=== PATIENT | male | born 1975 | race Caucasian/White ===

== ENCOUNTER → 2016-09-30 | Outpatient (CLI) | payer OTHER ==
[~2016-09-30] MED LIST: ASA; ASPIR-TRIN325 MG PO; ATIVAN0.5 MG PO; BACTRIM DS 8001 TA1 PO; BIAXIN500 MG PO; CATAFLAM50 MG; CIPRO500 MG PO; CYMBALTA30 MG; DOXYCYCLINE100 M3 PO; KEFLEX500 MG PO; Lopressor25 MG PO; METOPROLOL TAR; PERCOCET 325 MG1 TA2 PO; PHENERGAN W/ DE30 ML PO; PREDNICOT10 MG PO; PROAIR HFA0.09 MG/AC INH; PROTONIX40 M1 IV; PROTONIX40 MG PO; RESTORIL15 MG; SEROQUEL100 MG PO; TYLENOL650 M1 PO; VICODIN 5/500 505 MG; ZESTRIL10 MG; ZESTRIL10 MG PO; ZYPREXA10 MG
[2016-09-30 09:55] LABS: BASO % 0.4 % (0.0-1.0); EOS # 0.2 10*3/uL (0.0-0.4); EOS % 2.9 % (1.0-4.0); HEMATOCRIT 42.7 % (42.0-52.0); HEMOGLOBIN 14.6 g/dl (14.0-18.0); LYMPH # 2.9 10*3/uL (1.3-4.4); LYMPH % 35.5 % (27.0-41.0); MEAN CELL VOLUME 90.9 fl (80.0-94.0); MEAN CORPUSCULAR HGB 31.1 pg (27.0-31.0); MEAN CORPUSCULAR HGB CONC 34.2 g/dl (33.0-37.0); MEAN PLATELET VOLUME 8.8 fl (9.6-12.3); MONO # 0.5 10*3/uL (0.1-1.0); MONO % 6.4 % (3.0-9.0); NEUT # 4.5 10*3/uL (2.3-7.9); NEUT % 54.7 % (47.0-73.0); PLATELET COUNT AUTOMATED 315 10*3/uL (130-400); RED CELL DISTRI WIDTH 12.1 % (0-14.5); WHITE BLOOD COUNT 8.3 10*3/uL (4.8-10.8)
[2016-09-30 10:22] LABS: HEMOGLOBIN A1c 5.7 % (4.8-5.6)
[2016-09-30 10:24] LABS: ALBUMIN 4.2 gm/dl (3.1-4.5); ALKALINE PHOSPHATASE 93 U/L (45-117); BILIRUBIN, DIRECT < 0.1 mg/dL (0.0-0.2); BILIRUBIN, TOTAL 0.3 mg/dl (0.2-1.0); BUN 17 mg/dl (7-24); CARBON DIOXIDE 27 mmol/L (21-32); CHLORIDE 105 mmol/L (98-107); CHOLESTEROL 206 mg/dL (<200); EST GLOM FILT AFRICAN AMERICAN > 60 ml/min; FREE T4 0.86 ng/dl (0.76-1.46); GLUCOSE 94 mg/dL (65-99); HDL CHOLESTEROL 43 mg/dl (40-60); LDL CHOLESTEROL 140 mg/dL (9-159); POTASSIUM 4.4 mmol/L (3.5-5.1); SGOT/AST 28 IU/L (3-35); SGPT/ALT 39 U/L (12-78); SODIUM 139 mmol/L (136-145); TOTAL PROTEIN 7.8 gm/dL (6.4-8.2); TRIGLYCERIDES 117 mg/dl (<150); VLDL CHOLESTEROL 23 mg/dL (6-40)
== END | disposition home or self-care (01) ==
LOC: LAB 09:26
PROVIDERS: Internal Medicine
DX: I10 Essential (primary) hypertension (principal); E03.8 Other specified hypothyroidism; E78.4 Other hyperlipidemia; R53.83 Other fatigue; E55.9 Vitamin D deficiency, unspecified; R73.02 Impaired glucose tolerance (oral)

== ENCOUNTER → 2016-12-15 | Outpatient (CLI) | payer OTHER ==
[2016-12-15 08:35] LABS: FREE T4 1.09 ng/dl (0.76-1.46)
[2016-12-15 08:40] LABS: THYROID STIM HORMONE (HS) 2.06 uIU/ml (0.358-4.75)
== END | disposition home or self-care (01) ==
LOC: LAB 07:42
PROVIDERS: Internal Medicine
DX: E03.8 Other specified hypothyroidism (principal)

== ENCOUNTER 2017-05-22 14:21 | Inpatient (IN) | payer OTHER ==
[~2017-05-22] VITALS: Ht 177.8 cm; Wt 127.0 kg
--- NOTE | ~2017-05-22 | PR ---
[place], [place] PROGRESS NOTE NAME: CAMMY CARMEN UNIT #: [id number] ROOM: 529 DOCTOR: HA DEL ANGEL MD BIRTHDATE: [birth year] DOS: 05/24/2017 CARDIOLOGY PROGRESS NOTE SUBJECTIVE: The patient was seen in the cardiology department just prior to his stress test today. He is a 41-year-old man who was admitted for progressive worsening dyspnea and a 60-pound weight gain over the last year. He did have peripheral edema on admission as well as wheezing and episodic dyspnea at rest. Since he has been hospitalized, he has been diuresed and the edema has improved. Since I saw him last evening, he has continued to have episodic dyspnea at rest. I did review his echocardiogram from yesterday afternoon. The study was entirely normal with normal left ventricular size, systolic and diastolic function and normal valve functions. PHYSICAL EXAMINATION: VITAL SIGNS: Today, his pulse is 76 and regular, blood pressure is 102/76. He is afebrile, pulse oximetry is 98%. He weighs 127 kilograms with a body mass index of 40.2. HEENT: Normocephalic, atraumatic. Extraocular muscles are intact. Sclerae are clear. Pupils are round and react to light. The oral mucosa is moist. Tongue is midline. NECK: Supple. He has no jugular distention or hepatojugular reflux. Carotids are full. LUNGS: Respirations are unlabored. His chest is clear to auscultation and percussion. He has no presacral edema. HEART: Has a regular rhythm without murmurs, rubs or gallops. EXTREMITIES: Showed no edema. IMPRESSION: 1. Progressive dyspnea on exertion. 2. Unexplained weight gain. 3. Fluid overload, responding to diuresis. 4. History of hypertension. 5. History of hypothyroidism. PLAN: We will proceed with a pharmacologic stress test today. Further recommendations will depend upon the results of the stress test. I thank the hospitalist physicians for asking our advice regarding his care. [place], [place] PROGRESS NOTE NAME: CAMMY CARMEN UNIT #: [id number] ROOM: 529 DOCTOR: HA DEL ANGEL MD BIRTHDATE: [birth year] HA DEL ANGEL MD CM:PNTRANS [id number] HA DEL ANGEL MD 05/24/17 1135 interface
[2017-05-22 14:22] VITALS: BP 130/77
[2017-05-22] MEDS ORDERED: TRINTELLIX10 MG PO (14:29)
[2017-05-22] MEDS ORDERED: SYNTHROID,LEV175 MCG PO (14:30)
[2017-05-22] MEDS ORDERED: HYDRALAZINE HYD50 MG PO (14:30)
[2017-05-22] MEDS ORDERED: REXULTI4 MG PO (14:31)
[2017-05-22 14:55] VITALS: BP 114/63
[2017-05-22 15:13] LABS: BASO % 0.3 % (0.0-1.0); EOS # 0.2 10*3/uL (0.0-0.4); EOS % 3.7 % (1.0-4.0); HEMATOCRIT 39.7 % (42.0-52.0); HEMOGLOBIN 13.5 g/dl (14.0-18.0); LYMPH # 2.6 10*3/uL (1.3-4.4); LYMPH % 43.1 % (27.0-41.0); MEAN CELL VOLUME 91.7 fl (80.0-94.0); MEAN CORPUSCULAR HGB 31.2 pg (27.0-31.0); MEAN PLATELET VOLUME 8.7 fl (9.6-12.3); MONO # 0.5 10*3/uL (0.1-1.0); MONO % 8.8 % (3.0-9.0); NEUT # 2.6 10*3/uL (2.3-7.9); NEUT % 43.9 % (47.0-73.0); PLATELET COUNT AUTOMATED 272 10*3/uL (130-400); RED BLOOD COUNT 4.33 10*6/uL (4.50-5.90); RED CELL DISTRI WIDTH 11.5 % (0-14.5); WHITE BLOOD COUNT 5.9 10*3/uL (4.8-10.8)
[2017-05-22 15:29] LABS: ALBUMIN 3.6 gm/dl (3.1-4.5); ALKALINE PHOSPHATASE 86 U/L (45-117); BUN 18 mg/dl (7-24); CHLORIDE 101 mmol/L (98-107); CREATININE 1.16 mg/dL (0.70-1.30); LIPASE 127 U/L (73-393); POTASSIUM 3.6 mmol/L (3.5-5.1); SGOT/AST 25 IU/L (3-35); SGPT/ALT 36 U/L (12-78); SODIUM 140 mmol/L (136-145); TOTAL PROTEIN 7.2 gm/dL (6.4-8.2)
[2017-05-22 15:30] LABS: ACT PARTIAL THROMBO TIME 24.5 SECONDS (20.8-31.5)
[2017-05-22 15:36] LABS: TROPONIN I < 0.015 ng/ml (<0.045)
[2017-05-22 16:05] VITALS: BP 112/60
[2017-05-22 16:56] VITALS: BP 102/68
[2017-05-22 18:00] VITALS: BP 123/74
[2017-05-22] MEDS ORDERED: VISTARIL50 MG PO (18:02)
[2017-05-22] MEDS ORDERED: TRAZODONE100 MG PO (18:03)
[2017-05-22] MEDS ORDERED: NORCO 7.5-3251 EACH PO (18:22)
[2017-05-23] VITALS: BP 127/77
[2017-05-23 06:39] LABS: HEMATOCRIT 41.7 % (42.0-52.0); HEMOGLOBIN 14.3 g/dl (14.0-18.0); MEAN CELL VOLUME 91.4 fl (80.0-94.0); MEAN CORPUSCULAR HGB 31.4 pg (27.0-31.0); MEAN CORPUSCULAR HGB CONC 34.3 g/dl (33.0-37.0); MEAN PLATELET VOLUME 9.3 fl (9.6-12.3); PLATELET COUNT AUTOMATED 277 10*3/uL (130-400); RED BLOOD COUNT 4.56 10*6/uL (4.50-5.90); RED CELL DISTRI WIDTH 11.7 % (0-14.5); WHITE BLOOD COUNT 4.9 10*3/uL (4.8-10.8)
[2017-05-23 07:09] LABS: ATYPICAL LYMPHS 1 % (0-0); BASOPHILS 1 % (0-1); PLATELET SUFFICIENCY NORMAL (NORMAL); TOTAL CELLS COUNTED 100 #CELLS
[2017-05-23 07:17] LABS: ALBUMIN 3.6 gm/dl (3.1-4.5); ALKALINE PHOSPHATASE 91 U/L (45-117); BUN 19 mg/dl (7-24); CHLORIDE 103 mmol/L (98-107); CHOLESTEROL 237 mg/dL (<200); HDL CHOLESTEROL 46 mg/dl (40-60); LDL CHOLESTEROL 177 mg/dL (9-159); PHOSPHOROUS 3.1 mg/dL (2.5-4.9); POTASSIUM 4.3 mmol/L (3.5-5.1); SGOT/AST 26 IU/L (3-35); SGPT/ALT 39 U/L (12-78); SODIUM 138 mmol/L (136-145); TOTAL PROTEIN 7.1 gm/dL (6.4-8.2); TRIGLYCERIDES 69 mg/dl (<150); VLDL CHOLESTEROL 14 mg/dL (6-40)
[2017-05-23 07:32] LABS: FREE T4 1.11 ng/dl (0.76-1.46)
[2017-05-23 08:00] VITALS: BP 130/92
[2017-05-23 08:30] LABS: VITAMIN D, 25-HYDROXY 24.9 ng/mL (30-100)
[2017-05-23 12:00] VITALS: BP 147/78
[2017-05-23 16:00] VITALS: BP 131/77
[2017-05-23 20:00] VITALS: BP 109/57
[2017-05-24] VITALS: BP 104/61
[2017-05-24 06:22] LABS: BASO % 0.4 % (0.0-1.0); EOS # 0.2 10*3/uL (0.0-0.4); EOS % 2.5 % (1.0-4.0); HEMATOCRIT 46.4 % (42.0-52.0); HEMOGLOBIN 15.8 g/dl (14.0-18.0); LYMPH # 2.3 10*3/uL (1.3-4.4); LYMPH % 28.8 % (27.0-41.0); MEAN CELL VOLUME 90.4 fl (80.0-94.0); MEAN CORPUSCULAR HGB 30.8 pg (27.0-31.0); MEAN CORPUSCULAR HGB CONC 34.1 g/dl (33.0-37.0); MEAN PLATELET VOLUME 8.9 fl (9.6-12.3); MONO # 0.8 10*3/uL (0.1-1.0); MONO % 9.6 % (3.0-9.0); NEUT # 4.7 10*3/uL (2.3-7.9); NEUT % 58.4 % (47.0-73.0); PLATELET COUNT AUTOMATED 323 10*3/uL (130-400); RED BLOOD COUNT 5.13 10*6/uL (4.50-5.90); RED CELL DISTRI WIDTH 11.5 % (0-14.5)
[2017-05-24 06:47] LABS: BUN 21 mg/dl (7-24); CHLORIDE 102 mmol/L (98-107); CREATININE 1.01 mg/dL (0.70-1.30); PHOSPHOROUS 3.2 mg/dL (2.5-4.9); SODIUM 136 mmol/L (136-145)
[2017-05-24 08:00] VITALS: BP 102/76
[2017-05-24 12:00] VITALS: BP 118/74
[2017-05-24] MEDS ORDERED: PROVENTIL HFA6.7 GM INH (13:46)
[2017-05-24] MEDS ORDERED: VITAMIN D-32000 UNIT PO (13:46)
== END 2017-05-24 16:00 | disposition home or self-care (01) | DRG 204 ==
LOC: ED 14:21 → 5E 16:43 → EDHOLD 16:43 → 5E 17:13
PROVIDERS: Emergency Medicine; Internal Medicine; Internal Medicine Nephrology
PROC: 3E073KZ Introduction of Other Diagnostic Substance into Coronary Artery, Percutaneous Approach (ICD-10-PCS; principal; 2017-05-24)
PROC: 4A02XM4 Measurement of Cardiac Total Activity, External Approach (ICD-10-PCS; principal; 2017-05-24)
DX: R06.09 Other forms of dyspnea (principal); E66.01 Morbid (severe) obesity due to excess calories; Z68.41 Body mass index [BMI] 40.0-44.9, adult; E83.41 Hypermagnesemia; D64.9 Anemia, unspecified; F32.9 Major depressive disorder, single episode, unspecified; E03.9 Hypothyroidism, unspecified; I10 Essential (primary) hypertension; R55 Syncope and collapse; R42 Dizziness and giddiness; E78.5 Hyperlipidemia, unspecified

== ENCOUNTER 2017-09-16 21:30 | Emergency (ER) | payer OTHER ==
[~2017-09-16] VITALS: Ht 177.8 cm; Wt 127.0 kg
[~2017-09-16 21:30] MED LIST changes: +HYDRALAZINE HYD50 MG PO; +NORCO 7.5-3251 EACH PO; +PROVENTIL HFA6.7 GM INH; +REXULTI4 MG PO; +SYNTHROID,LEV175 MCG PO; +TRAZODONE100 MG PO; +TRINTELLIX10 MG PO; +VISTARIL50 MG PO; +VITAMIN D-32000 UNIT PO
[2017-09-16] MEDS ORDERED: CYCLOBENZAPRINE10 MG PO (22:52)
[2017-09-16] MEDS ORDERED: NAPROSYN500 MG PO (22:52)
[2017-09-16] MEDS ORDERED: MEDROL DOSEPAK4 MG PO (22:52)
== END 2017-09-16 22:52 | disposition home or self-care (01) ==
LOC: ED 21:30
DX: S39.012A Strain of muscle, fascia and tendon of lower back, initial encounter (principal); Z79.899 Other long term (current) drug therapy; Z87.891 Personal history of nicotine dependence; X58.XXXA Exposure to other specified factors, initial encounter; Y93.89 Activity, other specified; Y92.89 Other specified places as the place of occurrence of the external cause; Y99.8 Other external cause status

== ENCOUNTER 2018-04-07 12:33 | Emergency (ER) | payer SELFPAY ==
[~2018-04-07] VITALS: Ht 177.8 cm; Wt 136.1 kg
--- NOTE | ~2018-04-07 | EKG ---
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
[~2018-04-07 12:33] MED LIST changes: +CYCLOBENZAPRINE10 MG PO; +MEDROL DOSEPAK4 MG PO; +NAPROSYN500 MG PO
[2018-04-07 13:02] LABS: BASO % 0.3 % (0.0-1.0); EOS # 0.1 10*3/uL (0.0-0.4); EOS % 1.5 % (1.0-4.0); HEMATOCRIT 42.2 % (42.0-52.0); HEMOGLOBIN 14.3 g/dl (14.0-18.0); LYMPH # 2.3 10*3/uL (1.3-4.4); LYMPH % 28.8 % (27.0-41.0); MEAN CELL VOLUME 92.7 fl (80.0-94.0); MEAN CORPUSCULAR HGB 31.4 pg (27.0-31.0); MEAN CORPUSCULAR HGB CONC 33.9 g/dl (33.0-37.0); MEAN PLATELET VOLUME 8.6 fl (9.6-12.3); MONO # 0.4 10*3/uL (0.1-1.0); MONO % 5.1 % (3.0-9.0); PLATELET COUNT AUTOMATED 344 10*3/uL (130-400); RED BLOOD COUNT 4.55 10*6/uL (4.50-5.90); RED CELL DISTRI WIDTH 12.4 % (0-14.5); WHITE BLOOD COUNT 7.9 10*3/uL (4.8-10.8)
[2018-04-07 13:16] LABS: ALBUMIN 3.6 gm/dl (3.1-4.5); ALKALINE PHOSPHATASE 90 U/L (45-117); BUN 13 mg/dl (7-24); CHLORIDE 103 mmol/L (98-107); CREATININE 1.12 mg/dL (0.70-1.30); POTASSIUM 4.1 mmol/L (3.5-5.1); SGOT/AST 19 IU/L (3-35); SGPT/ALT 38 U/L (12-78); SODIUM 137 mmol/L (136-145); TOTAL PROTEIN 7.6 gm/dL (6.4-8.2)
[2018-04-07 13:18] LABS: TROPONIN I < 0.015 ng/ml (<0.045)
== END 2018-04-07 13:34 | disposition home or self-care (01) ==
LOC: ED 12:33
PROVIDERS: Nurse Practitioner Family
DX: M62.838 Other muscle spasm (principal); I10 Essential (primary) hypertension; E78.5 Hyperlipidemia, unspecified; E03.9 Hypothyroidism, unspecified; E66.9 Obesity, unspecified; Z79.899 Other long term (current) drug therapy; Z87.891 Personal history of nicotine dependence

== ENCOUNTER 2018-05-15 02:16 | Emergency (ER) | payer SELFPAY ==
[~2018-05-15] VITALS: Ht 177.8 cm; Wt 136.1 kg
[2018-05-15] MEDS ORDERED: AVPAK AZITHROM250 M1 PO (03:08)
[2018-05-15] MEDS ORDERED: IBU800 MG PO (03:08)
[2018-05-15] MEDS ORDERED: CYCLOBENZAPRINE10 MG PO (03:08)
== END 2018-05-15 03:41 | disposition home or self-care (01) ==
LOC: ED 02:16
DX: J18.9 Pneumonia, unspecified organism (principal); F12.90 Cannabis use, unspecified, uncomplicated; E78.5 Hyperlipidemia, unspecified; I10 Essential (primary) hypertension; E03.9 Hypothyroidism, unspecified; Z79.899 Other long term (current) drug therapy; Z79.82 Long term (current) use of aspirin; Z87.891 Personal history of nicotine dependence; Z90.89 Acquired absence of other organs; Z98.890 Other specified postprocedural states

== ENCOUNTER → 2018-12-13 | Outpatient (CLI) | payer OTHER ==
[~2018-12-13] MED LIST changes: +AVPAK AZITHROM250 M1 PO; +IBU800 MG PO
[2018-12-13 06:39] LABS: BASO % 0.3 % (0.0-1.0); EOS # 0.2 10*3/uL (0.0-0.4); EOS % 2.3 % (1.0-4.0); HEMATOCRIT 44.7 % (42.0-52.0); HEMOGLOBIN 14.7 g/dl (14.0-18.0); LYMPH # 2.2 10*3/uL (1.3-4.4); LYMPH % 31.9 % (27.0-41.0); MEAN CORPUSCULAR HGB 30.2 pg (27.0-31.0); MEAN CORPUSCULAR HGB CONC 32.9 g/dl (33.0-37.0); MEAN PLATELET VOLUME 9.2 fl (9.6-12.3); MONO # 0.6 10*3/uL (0.1-1.0); MONO % 8.9 % (3.0-9.0); NEUT # 3.9 10*3/uL (2.3-7.9); NEUT % 56.5 % (47.0-73.0); PLATELET COUNT AUTOMATED 380 10*3/uL (130-400); RED BLOOD COUNT 4.86 10*6/uL (4.50-5.90); RED CELL DISTRI WIDTH 13.1 % (0-14.5)
[2018-12-13 07:12] LABS: ALBUMIN 3.8 gm/dl (3.1-4.5); ALKALINE PHOSPHATASE 90 U/L (45-117); BUN 14 mg/dl (7-24); CHLORIDE 105 mmol/L (98-107); CHOLESTEROL 217 mg/dL (<200); HDL CHOLESTEROL 37 mg/dl (40-60); LDL CHOLESTEROL 156 mg/dL (9-159); POTASSIUM 3.9 mmol/L (3.5-5.1); SGOT/AST 19 IU/L (3-35); SGPT/ALT 34 U/L (12-78); SODIUM 135 mmol/L (136-145); TOTAL PROTEIN 7.6 gm/dL (6.4-8.2); TRIGLYCERIDES 119 mg/dl (<150); VLDL CHOLESTEROL 24 mg/dL (6-40)
== END | disposition home or self-care (01) ==
LOC: LAB 05:56
PROVIDERS: Nurse Practitioner Family
DX: E03.9 Hypothyroidism, unspecified (principal); E78.5 Hyperlipidemia, unspecified; I10 Essential (primary) hypertension

== ENCOUNTER 2019-01-19 17:48 | Inpatient (IN) | payer OTHER ==
[~2019-01-19] VITALS: Ht 177.8 cm; Wt 123.5 kg
--- NOTE | ~2019-01-19 | EKG ---
[place], [place] ELECTROCARDIOGRAM REPORT NAME: CAMMY CARMEN UNIT #: [id number] ROOM: 409 DOCTOR: JOURDAN DRAFT REPORT BIRTHDATE: [birth year] [facility] Test Date: 2019-01-19 Test Time: 17:57:23 Pat Name: CAMMY CARMEN Department: Room: 409 Gender: M Straightener And Aligner: Roselyn Betancourt : 1975 Requested By: EDE DAO Order Number: [id number] Reading MD: Marichuy Campbell MD Measurements Intervals [place] Rate: 74 P: 1 ND: 184 QRS: 23 QRSD: 96 T: 33 QT: 399 QTc: 443 Interpretive Statements Sinus rhythm Compared to ECG 04/07/2018 12:49:53 No significant changes Electronically Signed On 01-21-2019 17:21:30 PDT by Marichuy Campbell MD CM:EKGRPT:ELECTROCARDIOGRAM REPORT [id number] EDE SOLIMAN DRAFT REPORT EDE DAO M.D.
--- NOTE | ~2019-01-19 | EKG ---
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
--- NOTE | ~2019-01-19 | ST ---
[place], [place] EXERCISE STRESS TEST REPORT NAME: CAMMY CARMEN UNIT #: [id number] ROOM: 409 DOCTOR: HERMILA BOYLE MD BIRTHDATE: [birth year] DOS: 01/20/2019 EXERCISE STRESS ECHOCARDIOGRAPHY AGE: 43. SEX: Male. REASON FOR TESTING: Recurrent syncope. PROCEDURE: The patient exercised for 8 minutes and 0 seconds on full Higinio protocol stress test and stopped for dyspnea. The patient achieved maximum heart rate of 149, which represented 84% of maximum predicted heart rate at a workload of 10 mets. There were no EKG changes on the exercise EKG. The patient experienced no chest pain. Lindsay treadmill score was 8 consistent with a low risk of cardiovascular events. There was an appropriate heart rate and blood pressure response to exercise and recovery. Below average functional capacity. Please see the separate imaging report for further details of the stress test results. Hermila Boyle MD CM:STRESS:EXERCISE STRESS TEST REPORT [id number] HERMILA BOYLE MD
[~2019-01-19 17:48] MED LIST changes: -ZESTRIL10 MG
[2019-01-19 18:01] VITALS: BP 116/64
[2019-01-19 18:35] LABS: BASO % 0.3 % (0.0-1.0); EOS # 0.1 10*3/uL (0.0-0.4); HEMATOCRIT 41.6 % (42.0-52.0); HEMOGLOBIN 13.4 g/dl (14.0-18.0); LYMPH # 1.6 10*3/uL (1.3-4.4); LYMPH % 16.1 % (27.0-41.0); MEAN CELL VOLUME 93.1 fl (80.0-94.0); MEAN CORPUSCULAR HGB CONC 32.2 g/dl (33.0-37.0); MEAN PLATELET VOLUME 8.9 fl (9.6-12.3); MONO # 0.8 10*3/uL (0.1-1.0); MONO % 7.7 % (3.0-9.0); NEUT # 7.3 10*3/uL (2.3-7.9); NEUT % 74.6 % (47.0-73.0); PLATELET COUNT AUTOMATED 345 10*3/uL (130-400); RED BLOOD COUNT 4.47 10*6/uL (4.50-5.90); RED CELL DISTRI WIDTH 13.3 % (0-14.5); WHITE BLOOD COUNT 9.8 10*3/uL (4.8-10.8)
[2019-01-19 18:50] LABS: ALBUMIN 3.5 gm/dl (3.1-4.5); ALKALINE PHOSPHATASE 81 U/L (45-117); BUN 11 mg/dl (7-24); CHLORIDE 106 mmol/L (98-107); CREATININE 1.04 mg/dL (0.70-1.30); POTASSIUM 3.9 mmol/L (3.5-5.1); SGOT/AST 19 IU/L (3-35); SGPT/ALT 31 U/L (12-78); SODIUM 138 mmol/L (136-145); TOTAL PROTEIN 7.2 gm/dL (6.4-8.2)
[2019-01-19 18:52] LABS: TROPONIN I < 0.015 ng/ml (<0.045)
[2019-01-19 19:20] VITALS: BP 113/58
--- NOTE | 2019-01-19 19:56 | NUR ---
PATIENT STATES HE IS FEELING BETTER AT THIS TIME. DENIES DIZZINESS WHILE LAYING IN BED. AT BEDSIDE TALKING WITH PATIENT. AOX4. SKIN W.P.D. RESP EASY AND NONLABORED. RN WILL CONT TO MONITOR. CALL LIGHT WITHIN REACH
[2019-01-19 20:00] LABS: BILIRUBIN NEGATIVE (NEGATIVE); BLOOD NEGATIVE (NEGATIVE); CLARITY CLEAR (CLEAR); COLOR YELLOW (YELLOW); GLUCOSE NEGATIVE (NEGATIVE); KETONE NEGATIVE (NEGATIVE); LEUKO ESTERASE NEGATIVE (NEGATIVE); NITRITE NEGATIVE (NEGATIVE); SPECIFIC GRAVITY 1.015 (1.005-1.030); UROBILINOGEN 0.2 E.U./dl (0.2-1.0)
[2019-01-19 20:17] LABS: EPITHELIAL CELLS 0-2; MUCOUS TRACE; WBC 0-2 wbc/hpf (0-5)
[2019-01-19 20:18] LABS: BACTERIA TRACE
--- NOTE | 2019-01-19 21:02 | NUR ---
PATIENT CURRENTLY EATING PIZZA AT THIS TIME.
[2019-01-19 22:00] VITALS: BP 127/72
--- NOTE | 2019-01-19 22:00 | NUR ---
A 43, admitted to 4E, under the services of OZZY Ramos DO with a diagnosis of SYNCOPE & COLLAPSE. Chief complaint is DIZZINESS/SYNCOPE. Patient arrived via stretcher from ER. Monitor applied. Initial assessment completed. Vital signs taken and recorded. OZZY RAMOS DO notified of admission to the unit. Orders received. See assessment for past medical history, medications and allergies. Patient and/or family oriented to unit. [facility] visitation policy reviewed. Clothing/patient valuable form completed. CORNELIUS CHAUDHARY
[2019-01-19] MEDS ORDERED: LEVOTHYROXINE137 MCG PO (22:07)
[2019-01-19] MEDS ORDERED: Lopressor25 MG PO (22:08)
[2019-01-19] MEDS ORDERED: SILDENAFIL CITR50 MG PO (22:12)
[2019-01-19] MEDS ORDERED: PROVENTIL HFA6.7 GM INH (22:14)
[2019-01-19] MEDS ORDERED: TERBINAFINE250 MG PO (22:15)
--- NOTE | 2019-01-19 22:19 | NUR ---
MED REC UP TO DATE PER PT RECALL.
--- NOTE | 2019-01-19 22:30 | NUR ---
AWARE OF MED REC UP TO DATE & PT'S REQUEST FOR TRAZODONE TONIGHT.
--- NOTE | 2019-01-19 22:38 | NUR ---
'S ANSWERING SERVICE CALLED REGARDING CONSULT. CALL BACK REQUESTED FOR TOMORROW MORNING. PT INFORMATION LEFT WITH ACTUARY CLERK.
--- NOTE | 2019-01-19 23:03 | NUR ---
PT ASLEEP IN BED AT THIS TIME. SCHEDULED TRAZODONE NOT GIVEN FOR THIS REASON.
[2019-01-20] VITALS: BP 127/72
[2019-01-20 08:00] VITALS: BP 122/84
--- NOTE | 2019-01-20 09:00 | NUR ---
[employer] in to talk to patient. Patient states lives at home with family. There are few steps in the home. Physician: Pharmacy: [facility] Home health services: none Patient's level of ADLs: INDEPENDENT Patient has working utilities: all working DME: none Follow-up physician's appointment after d/c: will be made by hospitalist nurse director upon discharge Does patient want to access PORTAL?: no Discharge plan discussed with patient, he states he lives at home with family, is independent in adls and ambualtion, he states he will return home when medically stable and denies any home needs. DAMARI STONE
--- NOTE | 2019-01-20 09:00 | NUR ---
TAKEN DOWN TO CARDIAC REHAB FOR STRESS TEST
--- NOTE | 2019-01-20 09:30 | NUR ---
INFORMED CONSENT OBTAINED FOR EXERCISE STRESS ECHO WITH DR. BOYLE. RESTING EKG NSR WITH A SUPINE HR OF 66 WITH BP OF 124/76 AND HR OF 94 WITH BP OF 120/80 IN STANDING POSITION. PT COMPLETED 8:00 OF A TITUS PROTOCOL WITH COMPLETION OF 2:00 OF STAGE III AT 3.4 MPH AND 14% GRADE. REACHED A PEAK HR OF 149 WHICH IS 84% OF PREDICTED MAX WITH A PEAK BP OF 174/84. TEST TERMINATED BECAUSE OF FATIGUE AND SOB. HAD NO CHEST PAIN OR ANY EKG CHANGES. DENIED ANY DIZZINESS WITH TESTING. SEE STRESS ECHO REPORT FOR FULL REPORT. OPTISON USED DURING TESTING. NEGATIVE STRESS ECHO. HAS AN AVERAGE EXERCISE TOLERANCE. LAST RECOVERY HR OF 104 WITH BP OF 128/82. RETURNED VIA WHEELCHAIR TO NURSING UNIT IN STABLE CONDITION.
[2019-01-20 12:00] VITALS: BP 124/78
[2019-01-20 16:00] VITALS: BP 151/91
--- NOTE | 2019-01-20 19:46 | NUR ---
CINTIA LOZANO PROVIDED TO PATIENT PER ORDER. PT STATES HE WILL APPLY HIMSELF.
[2019-01-20 20:00] VITALS: BP 136/71
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
[2019-01-21] VITALS: BP 122/61
--- NOTE | 2019-01-21 05:27 | NUR ---
NO NEEDS VOICED AT THIS TIME. WILL MONITOR. CALL LIGHT IN REACH. PT WEARING CINTIA HOSE.
[2019-01-21 05:52] LABS: BUN 13 mg/dl (7-24); CHLORIDE 104 mmol/L (98-107); CREATININE 1.04 mg/dL (0.70-1.30); SODIUM 139 mmol/L (136-145)
[2019-01-21 06:07] LABS: BASO % 0.3 % (0.0-1.0); EOS # 0.2 10*3/uL (0.0-0.4); EOS % 2.4 % (1.0-4.0); HEMATOCRIT 44.1 % (42.0-52.0); LYMPH # 2.2 10*3/uL (1.3-4.4); MEAN CELL VOLUME 93.8 fl (80.0-94.0); MEAN CORPUSCULAR HGB 29.8 pg (27.0-31.0); MEAN CORPUSCULAR HGB CONC 31.7 g/dl (33.0-37.0); MEAN PLATELET VOLUME 9.5 fl (9.6-12.3); MONO # 0.7 10*3/uL (0.1-1.0); MONO % 9.6 % (3.0-9.0); NEUT % 56.6 % (47.0-73.0); PLATELET COUNT AUTOMATED 356 10*3/uL (130-400); RED CELL DISTRI WIDTH 13.2 % (0-14.5); WHITE BLOOD COUNT 7.1 10*3/uL (4.8-10.8)
[2019-01-21 08:00] VITALS: BP 124/76
--- NOTE | 2019-01-21 08:10 | NUR ---
PT RESTING IN BED. NO DISTRESS NOTED. WILL MONITOR
--- NOTE | 2019-01-21 09:00 | NUR ---
case management visits with patient, present, stated patient is being discharged to home today and denies any home needs
--- NOTE | 2019-01-21 09:06 | NUR ---
SPOKE WITH DR BOYLE REGARDING 30 DAY MONITOR AND TILT TABLE SAYS THEY WILL TAKE CARE OF IT DR PÉREZ NOTIFIED PT WENT OUTSIDE, AFTER BEING TOLD THAT HE CANT DR PÉREZ NOTIFIED
[2019-01-21] MEDS ORDERED: ATORVASTATIN CA20 M1 PO (10:07)
--- NOTE | 2019-01-21 10:32 | NUR ---
Discharge instructions reviewed with patient/family. Patient receptive and verbalizes understanding. Follow-up care arranged. Written instructions given to patient/family. KAREY MCCURDY
== END 2019-01-21 10:38 | disposition home or self-care (01) | DRG 312 ==
LOC: ED 17:48 → EDHOLD 21:17 → 4E 21:17
PROVIDERS: Emergency Medicine; Internal Medicine; Student in an Organized Health Care Education/Training Program; ADMIT Internal Medicine
PROC: 4A02XM4 Measurement of Cardiac Total Activity, External Approach (ICD-10-PCS; principal; 2019-01-20)
DX: I95.1 Orthostatic hypotension (principal); E44.0 Moderate protein-calorie malnutrition; D64.9 Anemia, unspecified; E66.9 Obesity, unspecified; F32.9 Major depressive disorder, single episode, unspecified; I10 Essential (primary) hypertension; E03.9 Hypothyroidism, unspecified; E78.5 Hyperlipidemia, unspecified; N52.9 Male erectile dysfunction, unspecified; R73.9 Hyperglycemia, unspecified; F17.210 Nicotine dependence, cigarettes, uncomplicated; Z71.6 Tobacco abuse counseling; Z87.01 Personal history of pneumonia (recurrent); Z82.49 Family history of ischemic heart disease and other diseases of the circulatory system; Z83.3 Family history of diabetes mellitus; Z84.89 Family history of other specified conditions; Z79.899 Other long term (current) drug therapy; Z68.39 Body mass index [BMI] 39.0-39.9, adult

== ENCOUNTER 2019-11-12 13:26 | Emergency (ER) | payer OTHER ==
[~2019-11-12] VITALS: Ht 175.2 cm; Wt 108.0 kg
[~2019-11-12 13:26] MED LIST changes: +ATORVASTATIN CA20 M1 PO; +LEVOTHYROXINE137 MCG PO; +SILDENAFIL CITR50 MG PO; +TERBINAFINE250 MG PO
[2019-11-12 14:17] LABS: BASO % 0.1 % (0.0-1.0); EOS # 0.2 10*3/uL (0.0-0.4); EOS % 1.9 % (1.0-4.0); HEMATOCRIT 46.8 % (42.0-52.0); LYMPH # 2.3 10*3/uL (1.3-4.4); MEAN CELL VOLUME 93.8 fl (80.0-94.0); MEAN CORPUSCULAR HGB 31.5 pg (27.0-31.0); MEAN CORPUSCULAR HGB CONC 33.5 g/dl (33.0-37.0); MEAN PLATELET VOLUME 8.7 fl (9.6-12.3); MONO # 0.6 10*3/uL (0.1-1.0); MONO % 6.8 % (3.0-9.0); NEUT # 5.5 10*3/uL (2.3-7.9); NEUT % 64.1 % (47.0-73.0); PLATELET COUNT AUTOMATED 332 10*3/uL (130-400); RED BLOOD COUNT 4.99 10*6/uL (4.50-5.90); RED CELL DISTRI WIDTH 13.2 % (0-14.5); WHITE BLOOD COUNT 8.5 10*3/uL (4.8-10.8)
[2019-11-12 14:30] LABS: ALBUMIN 3.7 gm/dl (3.1-4.5); ALKALINE PHOSPHATASE 86 U/L (45-117); BUN 15 mg/dl (7-24); CHLORIDE 108 mmol/L (98-107); CREATININE 1.03 mg/dL (0.70-1.30); POTASSIUM 4.4 mmol/L (3.5-5.1); SGOT/AST 13 IU/L (3-35); SGPT/ALT 33 U/L (12-78); SODIUM 139 mmol/L (136-145); TOTAL PROTEIN 7.5 gm/dL (6.4-8.2)
[2019-11-12 14:31] LABS: ACT PARTIAL THROMBO TIME 26.8 SECONDS (20.0-32.1); INTERNATIONAL NORM RATIO 0.9 (2.0-3.5)
== END 2019-11-12 14:42 | disposition home or self-care (01) ==
LOC: ED 13:26
PROVIDERS: Nurse Practitioner Family
DX: R60.0 Localized edema (principal); F17.200 Nicotine dependence, unspecified, uncomplicated; Z79.899 Other long term (current) drug therapy; Z79.82 Long term (current) use of aspirin

== ENCOUNTER → 2020-01-25 | Outpatient (CLI) | payer OTHER | END | disposition home or self-care (01) | LOC: LAB 14:26 | DX: Z51.81 Encounter for therapeutic drug level monitoring (principal); Z79.899 Other long term (current) drug therapy ==

== ENCOUNTER → 2020-03-21 | Outpatient (CLI) | payer OTHER ==
[2020-03-21 07:49] LABS: BASO % 0.2 % (0.0-1.0); EOS # 0.1 10*3/uL (0.0-0.4); HEMATOCRIT 47.6 % (42.0-52.0); LYMPH # 1.7 10*3/uL (1.3-4.4); LYMPH % 28.5 % (27.0-41.0); MEAN CELL VOLUME 96.4 fl (80.0-94.0); MEAN CORPUSCULAR HGB CONC 33.2 g/dl (33.0-37.0); MEAN PLATELET VOLUME 9.3 fl (9.6-12.3); MONO # 0.7 10*3/uL (0.1-1.0); MONO % 11.8 % (3.0-9.0); NEUT # 3.6 10*3/uL (2.3-7.9); NEUT % 58.3 % (47.0-73.0); PLATELET COUNT AUTOMATED 295 10*3/uL (130-400); RED BLOOD COUNT 4.94 10*6/uL (4.50-5.90); RED CELL DISTRI WIDTH 12.5 % (0-14.5); WHITE BLOOD COUNT 6.1 10*3/uL (4.8-10.8)
[2020-03-21 08:18] LABS: ALKALINE PHOSPHATASE 56 U/L (45-117); BUN 19 mg/dl (7-24); CHLORIDE 106 mmol/L (98-107); CHOLESTEROL 245 mg/dL (<200); CREATININE 1.11 mg/dL (0.70-1.30); HDL CHOLESTEROL 38 mg/dl (40-60); LDL CHOLESTEROL 189 mg/dL (9-159); POTASSIUM 5.3 mmol/L (3.5-5.1); SGOT/AST 33 IU/L (3-35); SGPT/ALT 56 U/L (12-78); SODIUM 140 mmol/L (136-145); TOTAL PROTEIN 7.7 gm/dL (6.4-8.2); TRIGLYCERIDES 92 mg/dl (<150); VLDL CHOLESTEROL 18 mg/dL (6-40)
[2020-03-21 08:27] LABS: VALPROIC ACID (DEPAKENE) 44.6 ug/ml (50-100)
== END | disposition home or self-care (01) ==
LOC: LAB 06:49
PROVIDERS: ATTEND Nurse Practitioner
DX: Z51.81 Encounter for therapeutic drug level monitoring (principal); Z79.899 Other long term (current) drug therapy

== ENCOUNTER → 2020-09-17 | Outpatient (CLI) | payer OTHER ==
[2020-09-17 08:44] LABS: BASO # 0.1 10*3/uL (0.0-0.1); BASO % 0.5 % (0.0-1.0); EOS # 0.3 10*3/uL (0.0-0.4); HEMATOCRIT 52.1 % (42.0-52.0); LYMPH # 2.1 10*3/uL (1.3-4.4); LYMPH % 23.1 % (27.0-41.0); MEAN CELL VOLUME 96.8 fl (80.0-94.0); MEAN PLATELET VOLUME 8.6 fl (9.6-12.3); MONO # 0.7 10*3/uL (0.1-1.0); MONO % 7.6 % (3.0-9.0); NEUT % 65.7 % (47.0-73.0); PLATELET COUNT AUTOMATED 360 10*3/uL (130-400); RED BLOOD COUNT 5.38 10*6/uL (4.50-5.90); RED CELL DISTRI WIDTH 12.8 % (0-14.5); WHITE BLOOD COUNT 9.2 10*3/uL (4.8-10.8)
[2020-09-17 09:16] LABS: ALBUMIN 3.9 gm/dl (3.1-4.5); ALKALINE PHOSPHATASE 107 U/L (45-117); BUN 13 mg/dl (7-24); CHLORIDE 108 mmol/L (98-107); CHOLESTEROL 258 mg/dL (<200); CREATININE 1.12 mg/dL (0.70-1.30); LDL CHOLESTEROL 191 mg/dL (9-159); POTASSIUM 4.9 mmol/L (3.5-5.1); SGOT/AST 19 IU/L (3-35); SGPT/ALT 28 U/L (12-78); SODIUM 140 mmol/L (136-145); TOTAL PROTEIN 8.1 gm/dL (6.4-8.2); TRIGLYCERIDES 107 mg/dl (<150)
== END | disposition home or self-care (01) ==
LOC: LAB 08:22
PROVIDERS: ATTEND Nurse Practitioner
DX: Z51.81 Encounter for therapeutic drug level monitoring (principal); Z79.899 Other long term (current) drug therapy

== ENCOUNTER → 2020-11-21 | Outpatient (CLI) | payer OTHER | END | disposition home or self-care (01) | LOC: LAB 08:30 | PROVIDERS: ATTEND Nurse Practitioner | DX: Z51.81 Encounter for therapeutic drug level monitoring (principal); Z79.899 Other long term (current) drug therapy ==

== ENCOUNTER → 2021-01-18 | Outpatient (CLI) | payer SELFPAY | END | disposition home or self-care (01) | LOC: LAB 09:08 | PROVIDERS: ATTEND Nurse Practitioner | DX: Z51.81 Encounter for therapeutic drug level monitoring (principal); Z79.899 Other long term (current) drug therapy ==

== ENCOUNTER → 2021-07-05 | Outpatient (CLI) | payer BC ==
[2021-07-05 08:52] LABS: FREE T4 0.62 ng/dl (0.76-1.46)
[2021-07-05 08:57] LABS: THYROID STIM HORMONE (HS) 21.5 uIU/ml (0.358-4.75)
== END | disposition home or self-care (01) ==
LOC: LAB 08:10
PROVIDERS: ATTEND Nurse Practitioner
DX: Z51.81 Encounter for therapeutic drug level monitoring (principal); Z79.899 Other long term (current) drug therapy

== ENCOUNTER 2023-06-01 13:28 | Emergency (ER) | payer MEDICAID ==
[~2023-06-01] VITALS: Ht 177.8 cm; Wt 104.3 kg
[2023-06-01] MEDS ORDERED: Acetaminophen/Oxycodone 5 MG/325 MG TABLET PO ONE (13:35)
[2023-06-01] MEDS ORDERED: PERCOCET 5-3251 EACH PO ×3 (14:05→17:20)
== END 2023-06-01 14:14 | disposition home or self-care (01) ==
LOC: ED 13:28
DX: S62.326A Displaced fracture of shaft of fifth metacarpal bone, right hand, initial encounter for closed fracture (principal); F41.9 Anxiety disorder, unspecified; F31.9 Bipolar disorder, unspecified; I10 Essential (primary) hypertension; F17.200 Nicotine dependence, unspecified, uncomplicated; F12.90 Cannabis use, unspecified, uncomplicated; Z90.49 Acquired absence of other specified parts of digestive tract; Z98.890 Other specified postprocedural states; W23.0XXA Caught, crushed, jammed, or pinched between moving objects, initial encounter; Y93.89 Activity, other specified; Y92.89 Other specified places as the place of occurrence of the external cause; Y99.8 Other external cause status

== ENCOUNTER 2023-06-12 18:11 | Emergency (ER) | payer OTHER, MEDICAID ==
[~2023-06-12] VITALS: Wt 113.4 kg
[~2023-06-12 18:11] MED LIST changes: +PERCOCET 5-3251 EACH PO
[2023-06-12] MEDS ORDERED: SODIUM CHLORIDE 0.9% 1,000 ML IV ONE (18:20)
[2023-06-12] MEDS ORDERED: Thiamine 200 MG/2 ML VIAL IV ONE (18:20)
[2023-06-12] MEDS ORDERED: IOHEXOL 300 MG/ML 100 ML VIAL IV ONE (18:25)
[2023-06-12 18:29] LABS: BASO % 0.4 % (0.0-1.0); EOS # 0.2 10*3/uL (0.0-0.4); EOS % 1.8 % (1.0-4.0); HEMATOCRIT 45.6 % (42.0-52.0); LYMPH # 3.8 10*3/uL (1.3-4.4); LYMPH % 46.2 % (27.0-41.0); MEAN CELL VOLUME 96.8 fl (80.0-94.0); MEAN CORPUSCULAR HGB 32.1 pg (27.0-31.0); MEAN CORPUSCULAR HGB CONC 33.1 g/dl (33.0-37.0); MEAN PLATELET VOLUME 8.4 fl (9.6-12.3); MONO # 0.7 10*3/uL (0.1-1.0); MONO % 8.6 % (3.0-9.0); NEUT # 3.4 10*3/uL (2.3-7.9); NEUT % 42.5 % (47.0-73.0); PLATELET COUNT AUTOMATED 347 10*3/uL (130-400); RED BLOOD COUNT 4.71 10*6/uL (4.50-5.90); RED CELL DISTRI WIDTH 13.4 % (0-14.5); WHITE BLOOD COUNT 8.1 10*3/uL (4.8-10.8)
[2023-06-12 18:46] LABS: ALKALINE PHOSPHATASE 74 U/L (46-116); BUN 9 mg/dl (9-23); CHLORIDE 104 mmol/L (98-107); LIPASE 74 U/L (12-53); POTASSIUM 3.7 mmol/L (3.4-5.1); SGPT/ALT 21 U/L (5-49); TOTAL PROTEIN 7.5 gm/dL (6.0-8.0)
[2023-06-12] MEDS ORDERED: Nicotine 21 MG PATCH T ONE (20:35)
[2023-06-12 21:29] LABS: BILIRUBIN Negative (Negative); BLOOD 1+ (Negative); CLARITY Clear (Clear); COLOR Yellow (Yellow); GLUCOSE Negative (Negative); KETONE Negative (Negative); LEUKO ESTERASE Negative (Negative); NITRITE Negative (Negative); PH 5.5 (4.5-8.0); SPECIFIC GRAVITY 1.015 (1.001-1.030); UROBILINOGEN 0.2 E.U./dl (0.0-1.0)
[2023-06-12 21:39] LABS: BACTERIA TRACE; EPITHELIAL CELLS 0-2; WBC 0-2 wbc/hpf (0-5)
[2023-06-12 21:40] LABS: URINE AMPHETAMINES Negative (1000ng/ml); URINE BARBITURATES Negative (200ng/ml); URINE BENZODIAZEPINES Negative (200ng/ml); URINE CANNABINOIDS (THC) Positive (50ng/ml); URINE COCAINE Negative (300ng/ml); URINE METHADONE Negative (300ng/ml); URINE OPIATES Negative (300ng/ml); URINE PHENCYCLIDINE Negative (25ng/ml)
[2023-06-13] MEDS ORDERED: Nicotine 21 MG PATCH T SCH (10:00)
== END 2023-06-12 22:35 | disposition short-term general hospital (02) ==
LOC: ED 18:11
PROVIDERS: Nurse Practitioner Family
DX: S12.500A Unspecified displaced fracture of sixth cervical vertebra, initial encounter for closed fracture (principal); M25.512 Pain in left shoulder; F10.920 Alcohol use, unspecified with intoxication, uncomplicated; E44.0 Moderate protein-calorie malnutrition; E66.9 Obesity, unspecified; F32.A Depression, unspecified; I10 Essential (primary) hypertension; E78.5 Hyperlipidemia, unspecified; F17.200 Nicotine dependence, unspecified, uncomplicated; E03.9 Hypothyroidism, unspecified; Z79.899 Other long term (current) drug therapy; Z68.35 Body mass index [BMI] 35.0-35.9, adult; Z79.82 Long term (current) use of aspirin; Z98.890 Other specified postprocedural states; Z90.89 Acquired absence of other organs; Y90.8 Blood alcohol level of 240 mg/100 ml or more; V49.9XXA Car occupant (driver) (passenger) injured in unspecified traffic accident, initial encounter; Y93.I9 Activity, other involving external motion; Y92.488 Other paved roadways as the place of occurrence of the external cause; Y99.8 Other external cause status

== ENCOUNTER 2023-06-16 20:06 | Emergency (ER) | payer MEDICAID, OTHER ==
[~2023-06-16] VITALS: Ht 177.8 cm; Wt 104.3 kg
[2023-06-16] MEDS ORDERED: Ondansetron Hydrochloride 4 MG/2 ML VIAL IV ONE (20:50)
[2023-06-16] MEDS ORDERED: HYDROmorphONE Hydrochloride 1 MG/ML SYR IV ONE (20:50)
[2023-06-16] MEDS ORDERED: Ketorolac Tromethamine 30 MG/ML VIAL IV ONE (22:50)
[2023-06-16] MEDS ORDERED: ONDANSETRON4 MG SL (23:26)
== END 2023-06-17 03:49 | disposition home or self-care (01) ==
LOC: ED 20:06
DX: M25.512 Pain in left shoulder (principal); R11.0 Nausea; M54.2 Cervicalgia; M54.9 Dorsalgia, unspecified; R73.9 Hyperglycemia, unspecified; D64.9 Anemia, unspecified; E78.5 Hyperlipidemia, unspecified; I10 Essential (primary) hypertension; E03.9 Hypothyroidism, unspecified; F31.9 Bipolar disorder, unspecified; F41.9 Anxiety disorder, unspecified; Z90.89 Acquired absence of other organs; Z98.890 Other specified postprocedural states; F12.90 Cannabis use, unspecified, uncomplicated; F17.200 Nicotine dependence, unspecified, uncomplicated

== ENCOUNTER 2024-12-30 17:43 | Emergency (ER) | payer MEDICAID ==
[~2024-12-30] VITALS: Ht 177.8 cm; Wt 86.2 kg
[~2024-12-30 17:43] MED LIST changes: +ONDANSETRON4 MG SL
[2024-12-30] MEDS ORDERED: NATURE'S BLEND F1 MG PO (17:57)
[2024-12-30] MEDS ORDERED: NEURONTIN300 MG PO (17:58)
[2024-12-30] MEDS ORDERED: LEVOXYL100 MCG PO (17:58)
[2024-12-30] MEDS ORDERED: SLEEP MELATONIN1 MG PO (17:59)
[2024-12-30] MEDS ORDERED: FLOMAX0.4 MG PO (18:00)
[2024-12-30] MEDS ORDERED: PROPRANOLOL HYD20 MG PO (18:00)
[2024-12-30] MEDS ORDERED: MIRALAX119 GM PO (18:00)
[2024-12-30] MEDS ORDERED: TRAZODONE150 MG PO (18:01)
[2024-12-30] MEDS ORDERED: Albuterol Sulf/Ipratropium 3 ML VIAL NEB ONE (18:25)
[2024-12-30] MEDS ORDERED: Ondansetron Hydrochloride 4 MG/2 ML VIAL IV ONE (18:25)
[2024-12-30 18:41] LABS: BASO # 0.0 10*3/uL (0.0-0.1); BASO % 0.3 % (0.0-1.0); EOS # 0.7 10*3/uL (0.0-0.4); EOS % 9.5 % (1.0-4.0); MEAN CELL VOLUME 100.3 fl (80.0-94.0); MEAN CORPUSCULAR HGB 32.1 pg (27.0-31.0); MEAN PLATELET VOLUME 8.3 fl (9.6-12.3); MONO # 0.6 10*3/uL (0.1-1.0); MONO % 7.3 % (3.0-9.0); NEUT # 4.7 10*3/uL (2.3-7.9); NEUT % 62.0 % (47.0-73.0); NUCLEATED RED BLOOD CELL 0.0 % (0.0-0.0); NUCLEATED RED BLOOD CELL 0.0 10*3/uL (0.0-0.0); PLATELET COUNT AUTOMATED 341 10*3/uL (130-400); RED CELL DISTRI WIDTH 12.8 % (0-14.5)
[2024-12-30 18:56] LABS: BUN 16 mg/dl (9-23)
[2024-12-30] MEDS ORDERED: AZITHROMYCIN 250 ML IV ONE (20:15)
[2024-12-30] MEDS ORDERED: AVPAK AZITHROM250 MG PO (21:00)
[2024-12-30] MEDS ORDERED: MEDROL DOSEPAK4 MG PO (21:00)
[2025-01-03] MEDS ORDERED: LEVOFLOXACIN500 MG PO (18:56)
== END 2024-12-30 21:21 | disposition home or self-care (01) ==
LOC: ED 17:43
PROVIDERS: Emergency Medicine
DX: J18.9 Pneumonia, unspecified organism (principal); D53.9 Nutritional anemia, unspecified; F12.90 Cannabis use, unspecified, uncomplicated; F17.210 Nicotine dependence, cigarettes, uncomplicated; Z90.89 Acquired absence of other organs; Z98.890 Other specified postprocedural states; Z20.822 Contact with and (suspected) exposure to COVID-19

== ENCOUNTER 2025-01-03 20:38 | Inpatient (IN) | payer MEDICAID ==
[~2025-01-03] VITALS: Ht 177.8 cm; Wt 99.3 kg
[~2025-01-03 20:38] MED LIST changes: +AVPAK AZITHROM250 MG PO; +FLOMAX0.4 MG PO; +LEVOFLOXACIN500 MG PO; +LEVOXYL100 MCG PO; +MIRALAX119 GM PO; +NATURE'S BLEND F1 MG PO; +NEURONTIN300 MG PO; +PROPRANOLOL HYD20 MG PO; +SLEEP MELATONIN1 MG PO; +TRAZODONE150 MG PO
[2025-01-03 20:47] VITALS: BP 129/80
[2025-01-03] MEDS ORDERED: Albuterol Sulf/Ipratropium 3 ML VIAL NEB ONE (21:05)
[2025-01-03 21:42] LABS: BUN 18 mg/dl (9-23)
[2025-01-03 21:46] LABS: BASO # 0.0 10*3/uL (0.0-0.1); BASO % 0.3 % (0.0-1.0); EOS # 0.6 10*3/uL (0.0-0.4); EOS % 5.5 % (1.0-4.0); MEAN CORPUSCULAR HGB 31.8 pg (27.0-31.0); MEAN PLATELET VOLUME 8.7 fl (9.6-12.3); MONO # 1.0 10*3/uL (0.1-1.0); MONO % 9.2 % (3.0-9.0); NEUT # 7.3 10*3/uL (2.3-7.9); NEUT % 66.9 % (47.0-73.0); NUCLEATED RED BLOOD CELL 0.0 % (0.0-0.0); NUCLEATED RED BLOOD CELL 0.0 10*3/uL (0.0-0.0); PLATELET COUNT AUTOMATED 441 10*3/uL (130-400); RED CELL DISTRI WIDTH 13.2 % (0-14.5)
[2025-01-03 21:55] LABS: MEAN CELL VOLUME 101.8 fl (80.0-94.0)
[2025-01-03] MEDS ORDERED: AZITHROMYCIN 250 ML IV ONE (22:00)
[2025-01-03] MEDS ORDERED: SODIUM CHLORIDE 0.9% 1,000 ML IV SCH (22:00)
[2025-01-03] MEDS ORDERED: Ondansetron Hydrochloride 4 MG/2 ML VIAL IV PRN (22:50)
[2025-01-03] MEDS ORDERED: Acetaminophen/Hydrocodone 5 MG/325 MG TABLET PO PRN (22:50)
[2025-01-03] MEDS ORDERED: BISACODYL 10 MG SUPP R PRN (22:50)
[2025-01-03] MEDS ORDERED: ACETAMINOPHEN 650 MG SUPP R PRN (22:50)
[2025-01-03] MEDS ORDERED: TEMAZEPAM 15 MG CAP PO PRN (22:50)
[2025-01-03] MEDS ORDERED: BISACODYL 5 MG TAB PO PRN (22:50)
[2025-01-03] MEDS ORDERED: ACETAMINOPHEN 325 MG TAB PO PRN (22:50)
[2025-01-03] MEDS ORDERED: Albuterol Sulf/Ipratropium 3 ML VIAL NEB PRN (22:50)
[2025-01-03 23:42] VITALS: BP 151/92
[2025-01-04 00:15] VITALS: BP 144/95
[2025-01-04] MEDS ORDERED: VANCOMYCIN HYDROCHLORIDE IV ONE (01:00)
[2025-01-04] MEDS ORDERED: SODIUM CHLORIDE 0.9% IV ONE (01:00)
[2025-01-04 06:02] LABS: BASO # 0.0 10*3/uL (0.0-0.1); BASO % 0.1 % (0.0-1.0); EOS # 0.0 10*3/uL (0.0-0.4); EOS % 0.0 % (1.0-4.0); MEAN CELL VOLUME 99.7 fl (80.0-94.0); MEAN CORPUSCULAR HGB 30.8 pg (27.0-31.0); MEAN PLATELET VOLUME 8.8 fl (9.6-12.3); MONO # 0.2 10*3/uL (0.1-1.0); MONO % 1.7 % (3.0-9.0); NEUT # 8.4 10*3/uL (2.3-7.9); NEUT % 89.5 % (47.0-73.0); NUCLEATED RED BLOOD CELL 0.0 % (0.0-0.0); NUCLEATED RED BLOOD CELL 0.0 10*3/uL (0.0-0.0); PLATELET COUNT AUTOMATED 456 10*3/uL (130-400); RED CELL DISTRI WIDTH 12.9 % (0-14.5)
[2025-01-04 06:22] LABS: ACT PARTIAL THROMBO TIME 27.3 SECONDS (20.0-32.1)
[2025-01-04 06:27] LABS: BUN 15 mg/dl (9-23); FREE T4 1.57 ng/dl (0.89-1.76); LDL CHOLESTEROL 105 mg/dL (9-159); SGPT/ALT 16 U/L (5-49)
[2025-01-04 07:32] LABS: VITAMIN D, 25-HYDROXY 28.4 ng/mL (30-100)
[2025-01-04] MEDS ORDERED: SODIUM CHLORIDE 0.9% 500 ML BAG IV ONE (07:45)
[2025-01-04] MEDS ORDERED: Vancomycin Hydrochloride 500 MG VIAL IV ONE (07:45)
[2025-01-04] MEDS ORDERED: Vancomycin Hydrochloride 1,000 MG VIAL IV ONE (07:45)
[2025-01-04 08:00] VITALS: BP 149/74
[2025-01-04] MEDS ORDERED: GABAPENTIN 300 MG CAP PO SCH (10:00)
[2025-01-04] MEDS ORDERED: ALPRAZolam 0.5 MG TAB PO ONE (11:15)
[2025-01-04] MEDS ORDERED: BARIUM SULFATE 98% 340 GM BOT PO ONE ×2 (11:25→11:49)
[2025-01-04 12:00] VITALS: BP 157/88
[2025-01-04 16:00] VITALS: BP 140/84
[2025-01-04] MEDS ORDERED: hydrOXYzine hydrochloride 50 MG/ML VIAL IM PRN (16:45)
[2025-01-04 20:00] VITALS: BP 136/80
[2025-01-04] MEDS ORDERED: AZITHROMYCIN 250 ML IV SCH ×2 (21:00)
[2025-01-05] VITALS: BP 109/80
[2025-01-05 06:13] LABS: BUN 12 mg/dl (9-23)
[2025-01-05 06:29] LABS: BASO # 0.0 10*3/uL (0.0-0.1); BASO % 0.1 % (0.0-1.0); EOS # 0.2 10*3/uL (0.0-0.4); EOS % 2.2 % (1.0-4.0); MEAN CELL VOLUME 99.4 fl (80.0-94.0); MEAN CORPUSCULAR HGB 31.5 pg (27.0-31.0); MEAN PLATELET VOLUME 8.7 fl (9.6-12.3); MONO # 0.8 10*3/uL (0.1-1.0); MONO % 8.0 % (3.0-9.0); NEUT # 5.9 10*3/uL (2.3-7.9); NEUT % 62.2 % (47.0-73.0); NUCLEATED RED BLOOD CELL 0.0 % (0.0-0.0); NUCLEATED RED BLOOD CELL 0.0 10*3/uL (0.0-0.0); PLATELET COUNT AUTOMATED 434 10*3/uL (130-400); RED CELL DISTRI WIDTH 13.1 % (0-14.5)
[2025-01-05 08:00] VITALS: BP 142/85
[2025-01-05] MEDS ORDERED: LORazepam 0.5 MG TAB PO PRN (10:15)
[2025-01-05 12:00] VITALS: BP 133/76
[2025-01-05 16:00] VITALS: BP 138/77
[2025-01-05 20:00] VITALS: BP 134/76
[2025-01-06] VITALS: BP 127/71
[2025-01-06 06:04] LABS: BUN 11 mg/dl (9-23)
[2025-01-06 06:12] LABS: BASO # 0.0 10*3/uL (0.0-0.1); BASO % 0.3 % (0.0-1.0); EOS # 0.4 10*3/uL (0.0-0.4); EOS % 5.1 % (1.0-4.0); MEAN CELL VOLUME 98.8 fl (80.0-94.0); MEAN CORPUSCULAR HGB 31.3 pg (27.0-31.0); MEAN PLATELET VOLUME 8.5 fl (9.6-12.3); MONO # 0.6 10*3/uL (0.1-1.0); MONO % 7.6 % (3.0-9.0); NEUT # 4.9 10*3/uL (2.3-7.9); NEUT % 66.2 % (47.0-73.0); NUCLEATED RED BLOOD CELL 0.0 % (0.0-0.0); NUCLEATED RED BLOOD CELL 0.0 10*3/uL (0.0-0.0); PLATELET COUNT AUTOMATED 475 10*3/uL (130-400); RED CELL DISTRI WIDTH 13.1 % (0-14.5)
[2025-01-06] MEDS ORDERED: POTASSIUM CHLORIDE 20 MEQ TAB PO ONE ×2 (07:50→09:35)
[2025-01-06 08:27] VITALS: BP 122/68
[2025-01-06 11:56] VITALS: BP 138/83
[2025-01-06 16:24] VITALS: BP 138/78
[2025-01-06 20:00] VITALS: BP 127/75
[2025-01-07] VITALS: BP 126/74
[2025-01-07 06:07] LABS: BASO # 0.0 10*3/uL (0.0-0.1); BASO % 0.3 % (0.0-1.0); EOS # 0.6 10*3/uL (0.0-0.4); EOS % 7.3 % (1.0-4.0); MEAN CELL VOLUME 96.9 fl (80.0-94.0); MEAN CORPUSCULAR HGB 31.6 pg (27.0-31.0); MEAN PLATELET VOLUME 8.5 fl (9.6-12.3); MONO # 0.6 10*3/uL (0.1-1.0); MONO % 7.4 % (3.0-9.0); NEUT # 4.6 10*3/uL (2.3-7.9); NEUT % 59.4 % (47.0-73.0); NUCLEATED RED BLOOD CELL 0.0 % (0.0-0.0); NUCLEATED RED BLOOD CELL 0.0 10*3/uL (0.0-0.0); PLATELET COUNT AUTOMATED 484 10*3/uL (130-400); RED CELL DISTRI WIDTH 13.0 % (0-14.5)
[2025-01-07 06:55] LABS: BUN 9 mg/dl (9-23)
[2025-01-07 08:16] VITALS: BP 118/70
[2025-01-07] MEDS ORDERED: Cholecalciferol 2,000 UNIT TABLET (50 MCG) PO SCH (10:00)
[2025-01-07 12:00] VITALS: BP 136/72
== END 2025-01-07 11:59 | disposition left against medical advice (07) | DRG 871 ==
LOC: ED 20:38 → EDHOLD 22:27 → 5E 22:27
PROVIDERS: Internal Medicine; Student in an Organized Health Care Education/Training Program; ADMIT Internal Medicine; ATTEND Internal Medicine
PROC: 5A09357 Assistance with Respiratory Ventilation, Less than 24 Consecutive Hours, Continuous Positive Airway Pressure (ICD-10-PCS; principal; 2025-01-05)
DX: A41.9 Sepsis, unspecified organism (principal); J69.0 Pneumonitis due to inhalation of food and vomit; J90 Pleural effusion, not elsewhere classified; D53.9 Nutritional anemia, unspecified; R73.9 Hyperglycemia, unspecified; F17.210 Nicotine dependence, cigarettes, uncomplicated; D75.839 Thrombocytosis, unspecified; F32.A Depression, unspecified; E03.9 Hypothyroidism, unspecified; I10 Essential (primary) hypertension; E78.5 Hyperlipidemia, unspecified; F41.1 Generalized anxiety disorder; Z78.9 Other specified health status; Z90.89 Acquired absence of other organs; Z82.49 Family history of ischemic heart disease and other diseases of the circulatory system; Z79.899 Other long term (current) drug therapy; Z87.820 Personal history of traumatic brain injury